=== PATIENT | female | born 1970 | race Caucasian/White ===

== ENCOUNTER 2024-04-26 14:53 | Emergency (ER) | payer MEDICAID, SELFPAY ==
[2024-04-26 14:54] VITALS: BP 165/91; PULSE 95; RESP 16; TEMP 36.7; O2SAT 100; BMI 23.5
--- NOTE | 2024-04-26 15:09 | EDS_ITS ---
HPI History of Present Illness Chief Complaint: Back Narrative Narrative: 53-year-old female past medical history of sciatica that she has been dealing with for years, presents via EMS with back pain radiating down her right leg to her foot that she had since 8:00 this morning, approximately 7 hours ago. She states she usually takes half a Vicodin and a muscle relaxer which relieves her pain. Her last flareup of her sciatica was a few months ago. She states she is never had to come to the emergency department. She took a total of 3 Vicodin throughout the day, states she took a total of 4 ibuprofen, 2 prior to arrival, and a muscle relaxer but she still having pain radiating down her leg. She denies fevers or chills, no loss of bowel or bladder, no red flag signs for cauda equina. No recent trauma. She states she tried to do her exercises and stretches, but they were ineffective. [facility] Medical History (Updated 04/26/24 @ 17:43 by Joshua Conde MD) COPD (chronic obstructive pulmonary disease) Asthma Hypertension Diabetes Melanoma Allergy/AdvReac Type Severity Reaction Status Date / Time Penicillins (PCN) Allergy Unknown Hives Verified 04/26/24 15:02 Social History Smoking Status: Never smoker ROS ROS ED ROS Narrative Review of systems positive for low back pain and pain down right leg to foot. No fevers or chills, no loss of bowel or bladder, no saddle anesthesia. Denies other symptoms. EXAM Physical Exam Narrative Exam Narrative: Afebrile. Vital signs noted. Regular rate and rhythm. Lungs clear to auscultation bilaterally. Abdomen soft nontender with normal active bowel sounds. Palpable dorsalis pedis pulse, right. Range of motion limited secondary to pain initially. Const Vital Signs: 04/26/24 14:54 Temperature 98.0 F Temperature Source Oral Pulse Rate 95 Respiratory Rate 16 Blood Pressure 165/91 H Blood Pressure Mean 115 Pulse Ox 100 Oxygen Delivery Method Room Air MDM MDM MDM Narrative Medical decision making narrative: Differential diagnosis includes but not limited to lumbar radiculopathy/sciatica versus cauda equina. I have low suspicion for any red flag signs for cauda equina and she appears neurovascularly intact to the bilateral lower extremities. For analgesia she was administered Norflex, Toradol, and morphine intramuscularly. I did order lumbar x-rays as she has not had imaging in a few years, but she denies any trauma so I have low suspicion for compression f karla. She states that she has herniated disc at L3-L4 that is known to her. On my independent interpretation of her lumbar x-rays, there is no acute fracture. I reviewed the radiology report which confirms my independent interpretation and comments on moderate to severe dextroscoliosis and mild chronic wedging of the superior endplate of L1. Upon repeat examination, she is feeling improved. At approximately 1740, I was informed by the RN that she was able to ambulate to the bathroom. I feel she can be discharged to follow-up. She will continue her Vicodin and muscle relaxers at home. She was told that she may need to take an anti-inflammatory more frequently. She can follow-up with her primary care provider as she may require outpatient MRI. Additionally, she was referred to orthopedic spine surgery to follow-up with as needed. Return instructions to the emergency department were reviewed. Disposition is discharged home in stable condition. History & Record Review Discussion w/independent historian: Patient Radiography Diagnostic Testing: Clinical Impression(s) from Imaging Studies Lumbar Spine X-Ray 04/26/24 15:35 IMPRESSION: Moderate to severe dextroscoliosis Mild chronic wedging of the superior endplate of L1. No acute fracture or subluxation. Electronically Signed: John Frausto MD at 16:37 EDT , Discharge Plan Triage Chief Complaint: Back ED Provider: Joshua Conde Dx/Rx/DC Orders Clinical Impression: Sciatica, Back pain, Lumbar radicular pain Instructions: Low Back Leg Pain Causes, ED Sciatica Primary Care Provider: Jasmina Virk Referrals: John Rodriguez DO [Med Staff - Active Staff] - As Needed Jasmina Virk MD [Primary Care Provider] - 3-5 Days Activity Restrictions/Additional Instructions: Continue your Vicodin and your muscle relaxers at home. You may need to add an anti-inflammatory at a higher dose, or more frequently. Follow-up with your primary care provider. Print Language: Armenian Disposition Disposition: Home, Self Care
[2024-04-26] MEDS: Orphenadrine 60 MG/2 ML Ampul IM (15:14)
[2024-04-26] MEDS: Ketorolac 60 MG/2 ML Vial IM (15:14)
[2024-04-26] MEDS: Morphine 4 MG/ML Syringe IM (15:15)
--- NOTE | 2024-04-26 15:35 | RAD_ITS ---
STUDY: X-RAY - LUMBAR SPINE REASON FOR EXAM: Female, 53 years old. pain TECHNIQUE: 3 view(s) of the lumbar spine were obtained. COMPARISON: None FINDINGS: Normal lumbar lordosis. There is moderate to severe dextro scoliosis or splinting secondary to muscle spasm. There is a normal alignment of the vertebrae. Mild chronic wedging of superior endplate of L1. No acute fracture or subluxation. No lytic or sclerotic bony lesions Normal vertebral bodies and endplates. Normal disc space heights. The soft tissue structures are unremarkable. RAD/Lumbar Spine 2 or 3 Views IMPRESSION: Moderate to severe dextroscoliosis Mild chronic wedging of the superior endplate of L1. No acute fracture or subluxation. Electronically Signed: John Frausto MD at 16:37 EDT ,
[2024-04-26 17:50] VITALS: BP 158/78; PULSE 89; RESP 16; TEMP 36.7; O2SAT 100
== END 2024-04-26 17:52 | disposition home or self-care (01) ==
PROVIDERS: Emergency Provider Emergency Medicine; PCP Family Medicine; Visit Provider Emergency Medicine
DX: M54.16 Radiculopathy, lumbar region (principal); J44.9 Chronic obstructive pulmonary disease, unspecified; E11.9 Type 2 diabetes mellitus without complications; I10 Essential (primary) hypertension; M54.30 Sciatica, unspecified side
CPT/HCPCS: 72100; 96372; 99282